=== PATIENT | male | born 1980 | race Caucasian/White ===

== ENCOUNTER 2016-11-16 02:01 | Emergency (ER) | payer BC ==
[~2016-11-16 02:01] MED LIST: ACYCLOVIR800 MG PO; CEPHALEXIN500 M1 PO; HYDROCODONE BIT1 T11 PO; NORCO 5-325 TA1 EACH PO; VOLTAREN50 M1 PO
[2016-11-16] MEDS ORDERED: HYDROCODONE BIT1 T20 PO (02:10)
[2016-11-16] MEDS ORDERED: MYCOLOG CREAM 115 GM T (03:32)
== END 2016-11-16 03:58 | disposition home or self-care (01) ==
LOC: ED 02:01
DX: M19.071 Primary osteoarthritis, right ankle and foot (principal); B35.3 Tinea pedis; F17.200 Nicotine dependence, unspecified, uncomplicated; Z79.899 Other long term (current) drug therapy

== ENCOUNTER 2019-05-02 15:00 | Emergency (ER) | payer OTHER ==
[~2019-05-02] VITALS: Ht 193 cm; Wt 113.4 kg
[~2019-05-02 15:00] MED LIST changes: +HYDROCODONE BIT1 T20 PO; +MYCOLOG CREAM 115 GM T
[2019-05-02] MEDS ORDERED: CEPHALEXIN500 M1 PO (17:03)
== END 2019-05-02 17:25 | disposition home or self-care (01) ==
LOC: ED 15:00
DX: L03.011 Cellulitis of right finger (principal)

== ENCOUNTER 2019-11-09 04:58 | Emergency (ER) | payer OTHER ==
[~2019-11-09] VITALS: Ht 193 cm; Wt 113.4 kg
[2019-11-09] MEDS ORDERED: ATORVASTATIN CA10 M1 PO (05:06)
[2019-11-09] MEDS ORDERED: PREDNISONE20 M1 PO (05:39)
== END 2019-11-09 06:00 | disposition home or self-care (01) ==
LOC: ED 04:58
DX: S93.621A Sprain of tarsometatarsal ligament of right foot, initial encounter (principal); Z79.899 Other long term (current) drug therapy; X58.XXXA Exposure to other specified factors, initial encounter; Y93.H2 Activity, gardening and landscaping; Y92.096 Garden or yard of other non-institutional residence as the place of occurrence of the external cause; Y99.8 Other external cause status